=== PATIENT | female | born 1950 ===

== ENCOUNTER 2018-03-26 19:00 | Emergency (ER) | payer MEDICARE, MEDICAID ==
[2018-03-26 19:08] VITALS: BMI 31.1
[2018-03-26 19:11] VITALS: BP 161/76; PULSE 99; RESP 16; TEMP 98; O2SAT 97
[2018-03-26] MEDS ORDERED: Tobramycin/Dexamethasone OPHT OINT OD STA (19:45)
--- NOTE | 2018-03-26 19:47 | C.PDOC ---
History Of Present Illness 68 year old female presents to the ED for evaluation of pain and swelling to her right lower eyelid which began two days ago and has worsened today. Patient denies vision change or injury to the area. Time Seen by Provider: 03/26/18 19:30 Chief Complaint (Nursing): Eye Problem History Per: Patient History/Exam Limitations: no limitations Onset/Duration Of Symptoms: Days (2) Current Symptoms Are (Timing): Worse Injury To Eye?: No Quality: "Pain" Associated Symptoms: Pain, Swelling. denies: Decreased Vision Additional History Per: Patient Past Medical History Reviewed: Historical Data, Nursing Documentation, Vital Signs Vital Signs: Last Vital Signs Temp 98.0 F 03/26/18 19:08 Pulse 99 H 03/26/18 19:08 Resp 16 03/26/18 19:08 BP 161/76 H 03/26/18 19:08 Pulse Ox 97 03/27/18 04:19 - Medical History PMH: Asthma, HTN Surgical History: No Surg Hx Family History: States: Unknown Family Hx - Social History Hx Alcohol Use: No Hx Substance Use: No - Immunization History Hx Tetanus Toxoid Vaccination: No Hx Influenza Vaccination: No Hx Pneumococcal Vaccination: No Review Of Systems Eyes: Positive for: Pain (right lower eyelid, with swelling ). Negative for: Vision Change Physical Exam - Physical Exam Appears: Non-toxic, No Acute Distress Skin: Normal Color, Warm, Dry Head: Atraumatic, Normacephalic Eye(s): bilateral: PERRL, EOMI, right: Other (stye noted on inner lower eyelid. edema of eyelid, that has spread down to inferior periorbital area. no drainage noted ), left: Normal Inspection Neck: Supple Neurological/Psych: Oriented x3, Normal Speech, Normal Cognition ED Course And Treatment O2 Sat by Pulse Oximetry: 97 (on RA) Pulse Ox Interpretation: Normal Progress Note: Clindamycin PO and Tobramycin OD given. On re-exam, patient is resting comfortably, showing no signs of distress and is stable for discharge. Patient is prescribed Clindamycin and Tobradex eye cream. She is advised to follow up with her PMD and Biometrics Specialist within 1-2 days for further evaluation and/or return to the ED if symptoms persist or worsen. Disposition - Disposition Referrals: Alisha Melendrez [Medical Doctor] - Disposition: HOME/ ROUTINE Disposition Time: 20:07 Condition: STABLE Additional Instructions: Follow up with your PMD and Biometrics Specialist within 1-2 days. Return to ED if feel worse. Prescriptions: Clindamycin [Cleocin] 300 mg PO Q6 #28 cap Tobramycin/Dexamethasone [Tobradex Eye Ointment] 1 appl OD BID #3.5 oint...g. Instructions: Iliana (Marcelinaum) Forms: TranscribeMe (Peruvian) - Clinical Impression Clinical Impression: Iliana - PA / PRINCIPAL SYSTEM SOFTWARE ENGINEER / Resident Statement MD/DO has reviewed & agrees with the documentation as recorded. - Scribe Statement The provider has reviewed the documentation as recorded by the Scribe (Eve Lakhani) All medical record entries made by the Scribe were at my direction and personally dictated by me. I have reviewed the chart and agree that the record accurately reflects my personal performance of the history, physical exam, medical decision making, and the department course for this patient. I have also personally directed, reviewed, and agree with the discharge instructions and disposition.
[2018-03-26] MEDS ORDERED: Tobramycin 0.3% OPH OINT ONE (20:08)
== END 2018-03-26 20:23 | disposition home or self-care (01) ==
LOC: C.ER 19:00
DX: H00.022 Hordeolum internum right lower eyelid (principal)

== ENCOUNTER 2018-11-12 06:47 | Emergency (ER) | payer MEDICARE, MEDICAID ==
[2018-11-12 06:48] VITALS: BMI 31.1
[2018-11-12 07:02] VITALS: TEMP 97.7
--- NOTE | 2018-11-12 07:31 | C.PDOC ---
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 pt reports redness to right knee and anterior neck today. denies sob. chest pain. no headache, fever, chills, hematuria, dysuria, and frequency. cough. pt is vague historian. Time Seen by Provider: 11/12/18 07:12 Chief Complaint (Nursing): Allergic Reaction History Per: Patient History/Exam Limitations: no limitations Onset/Duration Of Symptoms: Days (3) Current Symptoms Are (Timing): Still Present Past Medical History Reviewed: Historical Data, Nursing Documentation, Vital Signs Vital Signs: Last Vital Signs Temp 97.7 F 11/12/18 06:56 Pulse 110 H 11/12/18 06:56 Resp 16 11/12/18 06:56 BP 181/91 H 11/12/18 06:56 Pulse Ox 98 11/12/18 06:56 - Medical History PMH: Asthma, Diabetes, HTN Surgical History: No Surg Hx Family History: States: Unknown Family Hx - Social History Hx Alcohol Use: No Hx Substance Use: No - Immunization History Hx Tetanus Toxoid Vaccination: No Hx Influenza Vaccination: No Hx Pneumococcal Vaccination: No Review Of Systems Constitutional: Positive for: Other (difficulty sleeping). Negative for: Fever, Chills, Weakness Cardiovascular: Positive for: Palpitations. Negative for: Chest Pain Respiratory: Negative for: Shortness of Breath Genitourinary: Negative for: Dysuria, Frequency, Hematuria Musculoskeletal: Positive for: Neck Pain (redness to the anterior neck), Other (redness to the right knee) Neurological: Positive for: Dizziness. Negative for: Weakness, Numbness, Headache Physical Exam - Physical Exam Appears: Well, Non-toxic, No Acute Distress Skin: Normal Color, Warm, Dry, Other (no urticaria) Head: Atraumatic, Normacephalic Eye(s): bilateral: Normal Inspection, PERRL, EOMI Oral Mucosa: Moist Tongue: No Swelling Lips: No Swelling Throat: No Erythema, No Exudate Neck: Normal ROM, Supple Chest: Symmetrical, No Deformity, No Tenderness Cardiovascular: Rhythm Regular, No Murmur Respiratory: No Accessory Muscle Use, No Rales, No Rhonchi, No Wheezing Gastrointestinal/Abdominal: Soft, No Tenderness, No Distention Extremity: Normal ROM, Capillary Refill (<2 seconds), No Swelling, Other (no erythema) Extremity: Bilateral: Atraumatic, No Pedal Edema, Normal Color And Temperature Pulses: Left Radial: Normal, Right Radial: Normal, Left Dorsalis Pedis: Normal, Right Dorsalis Pedis: Normal Neurological/Psych: Oriented x3, Normal Speech, Normal Cognition, Normal Motor, Normal Sensation, Other (no pronator drift, normal finger to nose, SUNDEEP normal) ED Course And Treatment - Laboratory Results Result Diagrams: 11/12/18 07:46 11/12/18 07:46 ECG: Interpreted By Me, Viewed By Me ECG Rhythm: Sinus Rhythm ECG Interpretation: Normal Interpretation Of ECG: Left axis deviation. Rate From EC O2 Sat by Pulse Oximetry: 98 (in RA) - CT Scan/US Head CT Other Rad Studies (CT/US): Interpreted By Me, Read By Radiologist CT/US Interpretation: IMPRESSION: Normal CT of the Head. Medical Decision Making Medical Decision Making: Impression: 68 year old female with complaint of dizziness and palpitations Plan: EKG and Head CT Labs ordered with troponin, CBC, UA, and urine culture Patient given Pepcid IVP and IV fluids 0942 pt feeling better after pepcid and iv hydration. labs, ekg, head ct normal. pt with some abnormalities on urinalysis, has no symptoms, urine culture sent, will not give antibiotics. message left for HYDRO TECHNICIAN Kain. p[t to f/u pmd and gi. Disposition Counseled Patient/Family Regarding: Studies Performed, Diagnosis, Need For Followup - Disposition Referrals: Gary Hamilton MD [Staff Provider] - Jeanette Finnegan APN [Non-Staff] - Disposition: HOME/ ROUTINE Disposition Time: 09:47 Condition: IMPROVED Additional Instructions: Drink increased fluids. FOllow up with Dr Finnegan in 1-2 days. Also recommended that you follow up with a dry cleaning checker. Eat multiple small meals per day of bland foods. Return to ER for any worse symptoms. Instructions: Dehydration, Adult (DC) Forms: General Discharge Instructions, [facility] ([place]), Work Excuse - Clinical Impression Clinical Impression: Mild dehydration - PA / HYDRO TECHNICIAN / Resident Statement MD/DO has reviewed & agrees with the documentation as recorded. (Kera Longoria) - Scribe Statement The provider has reviewed the documentation as recorded by the Scribe (Kera Longoria) All medical record entries made by the Scribe were at my direction and personally dictated by me. I have reviewed the chart and agree that the record accurately reflects my personal performance of the history, physical exam, medical decision making, and the department course for this patient. I have also personally directed, reviewed, and agree with the discharge instructions and disposition.
[2018-11-12 07:51] LABS: BASO % 0.5 % (0.0-2.0); EOS % 0.7 % (0.0-4.0); HEMOGLOBIN 15.1 g/dL (11.0-16.0); LYMPH # 1.3 K/uL (1.0-4.3); LYMPH % 24.3 % (20.0-40.0); MEAN CELL VOLUME 91.6 fL (81.0-99.0); MEAN PLATELET VOLUME 9.9 fL (7.2-11.7); MONO # 0.5 K/uL (0.0-0.8); MONO % 9.6 % (0.0-10.0); NEUT # 3.3 K/uL (1.8-7.0); NEUT % 64.9 % (50.0-75.0); NRBC % 0.1 % (0.0-2.0); RBC 4.73 Mil/uL (3.80-5.20); RED CELL DISTRIBUTION WIDTH 12.7 % (11.5-14.5); WHITE BLOOD COUNT 5.2 K/uL (4.8-10.8)
[2018-11-12 08:08] LABS: ALB/GLOB RATIO 1.7 (1.0-2.1); ALBUMIN 4.7 g/dL (3.5-5.0); ALT/SGPT 32 U/L (9-52); AST/SGOT 54 U/L (14-36); BLOOD UREA NITROGEN 9 mg/dL (7-17); CALCIUM 10.2 mg/dl (8.6-10.4); GFR NON-AFRICAN AMERICAN > 60
[2018-11-12 08:16] LABS: SQUAMOUS EPITHIAL 2 /hpf (0-5); URINE BACTERIA RARE (<OCC); URINE BILIRUBIN 1+ (NEGATIVE); URINE BLOOD NEGATIVE (NEGATIVE); URINE CLARITY Hazy (Clear); URINE COLOR Amber (YELLOW); URINE GLUCOSE (UA) NORMAL (Normal); URINE LEUKOCYTE ESTERASE 1+ Leu/uL (Negative); URINE PROTEIN 1+ mg/dL (NEGATIVE)
[2018-11-12] MEDS ORDERED: Sodium Chloride 0.9% 1,000 ML IV ONE (08:26)
--- NOTE | 2018-11-12 08:26 | CT ---
Date of service: 11/12/2018 PROCEDURE: CT HEAD WITHOUT CONTRAST. HISTORY: dizzy COMPARISON: None available. TECHNIQUE: Axial computed tomography images were obtained through the head/brain without intravenous contrast. Radiation dose: Total exam DLP = 1045.0 mGy-cm. This CT exam was performed using one or more of the following dose reduction techniques: Automated exposure control, adjustment of the mA and/or kV according to patient size, and/or use of iterative reconstruction technique. FINDINGS: HEMORRHAGE: No intracranial hemorrhage. BRAIN: No mass effect or edema. No atrophy or chronic microvascular ischemic changes. VENTRICLES: Unremarkable. No hydrocephalus. CALVARIUM: Unremarkable. PARANASAL SINUSES: Unremarkable as visualized. No significant inflammatory changes. MASTOID AIR CELLS: Unremarkable as visualized. No inflammatory changes. OTHER FINDINGS: None. IMPRESSION: Normal CT of the Head.
[2018-11-12] MEDS ORDERED: Sodium Chloride 0.9% 1,000 ML ONE (08:31)
[2018-11-12 09:57] VITALS: BP 137/77; PULSE 72; RESP 12
[2018-11-12 10:01] VITALS: O2SAT 98
--- NOTE | 2018-11-13 11:12 | CARD ---
APPROVED REPORT Date of service: 11/12/2018 EKG Measurement Heart [id number] <Conclusion> Normal sinus rhythm Left axis deviation Abnormal ECG
== END 2018-11-12 10:30 | disposition home or self-care (01) ==
LOC: C.ER 06:47
DX: E86.0 Dehydration (principal); E11.9 Type 2 diabetes mellitus without complications; I10 Essential (primary) hypertension
CPT/HCPCS: 70450; 80053; 81001; 84484; 85025; 87086; 93005; 96361; 96374; 99285; J7030